=== PATIENT | male | born 1985 | race Caucasian/White ===

== ENCOUNTER 2017-07-31 19:45 | Emergency (ER) | payer SELFPAY ==
[2017-07-31 20:35] LABS: ADD MAN DIFF? NO
[2017-07-31 20:37] LABS: BASO # 0.1 x10^3/uL (0.0-0.2); BASO % 1 % (0-3); EOS # 0.3 x10^3/uL (0.0-0.7); EOS % 3 % (0-3); HEMATOCRIT 46.7 % (39.0-53.0); HEMOGLOBIN 15.8 g/dL (13.0-17.5); LYMPH # 3.2 x10^3/uL (1.0-4.8); LYMPH % 30 % (24-48); MEAN CORPUSCULAR HEMOGLOBIN 30 pg (25-35); MEAN CORPUSCULAR HGB CONC 34 g/dL (31-37); MEAN CORPUSCULAR VOLUME 89 fL (79-100); MONO # 0.6 x10^3/uL (0.0-1.1); MONO % 6 % (0-9); NEUT # 6.4 x10^3uL (1.8-7.7); NEUT % 60 % (31-73); PLATELET COUNT 338 x10^3/uL (140-400); RED BLOOD COUNT 5.26 x10^6/uL (4.30-5.70); WHITE BLOOD COUNT 10.5 x10^3/uL (4.0-11.0)
[2017-07-31 20:44] LABS: BILIRUBIN,URINE NEGATIVE (NEG); CLARITY,URINE CLEAR; COLOR,URINE YELLOW; GLUCOSE,URINE NEGATIVE (NEG); NITRITE,URINE NEGATIVE (NEG); PROTEIN,URINE NEGATIVE (NEG-TRACE); UROBILINOGEN,URINE 0.2 mg/dL (0.2 mg/dL)
[2017-07-31] MEDS ORDERED: CONTRAST GIVEN MC (20:45)
[2017-07-31 20:47] LABS: ANION GAP 11 (6-14); BLOOD UREA NITROGEN 14 mg/dL (8-26); BUN/CREATININE RATIO 14 (6-20); CARBON DIOXIDE 27 mmol/L (21-32); CHLORIDE 104 mmol/L (98-107); GFR 87.2; GLUCOSE 103 mg/dL (70-99); POTASSIUM 3.7 mmol/L (3.5-5.1); SODIUM 142 mmol/L (136-145)
[2017-07-31 20:53] LABS: ALK PHOS 95 U/L (46-116); ALT (SGPT) 37 U/L (16-63); AST (SGOT) 21 U/L (15-37); BACTERIA,URINE 0 /HPF (0-FEW); LIPASE 158 U/L (73-393); RBC,URINE 0 /HPF (0-2); SQUAMOUS EPITHELIAL CELL,UR OCC /LPF; TOTAL BILIRUBIN 0.4 mg/dL (0.2-1.0); WBC,URINE OCC /HPF (0-4)
[2017-07-31] MEDS: IV NORMAL SALINE 1000ML BAG 1,000 ML IV (21:07)
[2017-07-31] MEDS: KETOROLAC 30 MG/ML INJ. IV (21:08)
[2017-07-31] MEDS: IOHEXOL 300 MG/ML 100ML VIAL. IV (21:24)
== END 2017-07-31 23:31 | disposition home or self-care (01) ==
LOC: ER 19:45
DX: R10.12 Left upper quadrant pain (principal)
CPT/HCPCS: 36415; 74177; 80053; 81001; 83690; 85025; 96361; 96374; 99285-25; J1885; J7030; Q9967

== ENCOUNTER 2021-03-20 13:44 | Observation (INO) | payer OTHER ==
[~2021-03-20] VITALS: Ht 182.9 cm; Wt 156.5 kg
[~2021-03-20 13:44] MED LIST: CIPR500T94 PO; METR500T PO
[2021-03-20] MEDS ORDERED: IV NORMAL SALINE 1000ML BAG 1,000 ML IV ONE (14:15)
[2021-03-20] MEDS ORDERED: DEXAMETHASONE SOD PHOS 20 MG/5 ML VIAL. IV ONE (14:15)
[2021-03-20] MEDS ORDERED: IV NORMAL SALINE 1000ML BAG 1,000 ML IV SCH (14:15)
[2021-03-20] MEDS ORDERED: ACETAMINOPHEN 500 MG TABLET PO ONE (14:15)
[2021-03-20] MEDS ORDERED: ONDANSETRON PF 4 MG/2 ML VIAL. IVP ONE (14:15)
[2021-03-20] MEDS ORDERED: KETOROLAC 30 MG/ML VIAL. IVP ONE (14:15)
--- NOTE | 2021-03-20 14:40 | RAD ---
AP chest. HISTORY: Short of air, Covid symptoms AP view was taken of the chest. Patient's taken a poor inspiration which limits evaluation. There is no effusion. The heart is normal in size. Minimal infiltrates are possible. PA and lateral views with a better inspiration could be of benefit. IMPRESSION: 1. Poor inspiration. 2. Slight hazy atelectasis or possibly infiltrates. Electronically signed by: Melvin Box MD (03/20/2021 2:38 PM) [id number]
--- NOTE | 2021-03-20 14:58 | PHYS DOC ---
Past Medical History Past Medical History: No Pertinent History Past Surgical History: No Surgical History Smoking Status: Never Smoker Alcohol Use: None Drug Use: None General Adult EDM: Chief Complaint: FLU SYMPTOM HPI: HPI: Patient is a 35 year old male who presents with 7 days of cough, body aches, headache, shortness of breath, fever and yesterday started with nausea and vomiting. His children have also been sick. Nobody has been tested for Covid. He is not vaccinated. He denies any kind of medical history or surgeries. Rates his generalized pain at an 8 out of 10. Review of Systems: Review of Systems: Constitutional: +fever or chills. [] Eyes: Denies change in visual acuity. [] HENT: Denies nasal congestion or sore throat. [] Respiratory: + cough or +shortness of breath. [] Cardiovascular: Denies chest pain or edema. [] GI: Denies abdominal pain, +nausea, +vomiting, denies bloody stools or diarrhea. [] : Denies dysuria. [] Musculoskeletal: Denies back pain or joint pain. + Generalized body aches [] Integument: Denies rash. [] Neurologic: + headache, denies focal weakness or sensory changes. [] Endocrine: Denies polyuria or polydipsia. [] Lymphatic: Denies swollen glands. [] Psychiatric: Denies depression or anxiety. [] Heart Score: C/O Chest Pain: No Risk Factors: Risk Factors: DM, Current or recent (<one month) smoker, HTN, HLP, family history of CAD, obesity. Risk Scores: Score 0 - 3: 2.5% MACE over next 6 weeks - Discharge Home Score 4 - 6: 20.3% MACE over next 6 weeks - Admit for Clinical Observation Score 7 - 10: 72.7% MACE over next 6 weeks - Early Invasive Strategies Current Medications: Current Medications Medications (Trade) Dose Ordered Sig/Mani Start Time Stop Time Status Last Admin Dose Admin Acetaminophen (Tylenol) 1,000 mg 1X ONCE 03/20/21 14:15 03/20/21 14:36 DC Dexamethasone Sodium Phosphate (Decadron) 10 mg 1X ONCE 03/20/21 14:15 03/20/21 14:36 DC Ketorolac Tromethamine (Toradol 30mg Vial) 30 mg 1X ONCE 03/20/21 14:15 03/20/21 14:36 DC Ondansetron HCl (Zofran) 4 mg 1X ONCE 03/20/21 14:15 03/20/21 14:36 DC Sodium Chloride 1,000 ml @ 1,000 mls/hr 1X ONCE 03/20/21 14:15 03/20/21 15:14 Allergies: Allergies: Allergies Coded Allergies Type Severity Reaction Last Updated Verified No Known Drug Allergies 09/06/13 No Physical Exam: PE: Constitutional: Well developed, well nourished, no acute distress, non-toxic appearance. [] HENT: Normocephalic, atraumatic, bilateral external ears normal, oropharynx moist, no oral exudates, nose normal. [] Eyes: PERRLA, EOMI, conjunctiva normal, no discharge. [] Neck: Normal range of motion, no tenderness, supple, no stridor. [] Cardiovascular:Heart rate regular rhythm, no murmur [] Lungs & Thorax: Bilateral breath sounds clear to auscultation [] Abdomen: Bowel sounds normal, soft, no tenderness, no masses, no pulsatile masses. [] Skin: Warm, dry, no erythema, no rash. [] Back: No tenderness, no CVA tenderness. [] Extremities: No tenderness, no cyanosis, no clubbing, ROM intact, no edema. [] Neurologic: Alert and oriented X 3, normal motor function, normal sensory function, no focal deficits noted. [] Psychologic: Affect normal, judgement normal, mood normal. [] EKG: EK and read by Dr. Dill sinus tachycardia rhythm and no STEMI Radiology/Procedures: Radiology/Procedures: [][facility] [address] [place] [address] IMAGING REPORT Signed PATIENT: JOE VALLE ACCOUNT: [id number] : 1985 LOCATION: ER AGE: 35 SEX: M EXAM STATUS: REG ER ORD. PHYSICIAN: WYATT GONCALVES APRN REASON: covid sx, soa PROCEDURE: PORTABLE CHEST 1V AP chest. HISTORY: Short of air, Covid symptoms AP view was taken of the chest. Patient's taken a poor inspiration which limits evaluation. There is no effusion. The heart is normal in size. Minimal infiltrates are possible. PA and lateral views with a better inspiration could be of benefit. IMPRESSION: 1. Poor inspiration. 2. Slight hazy atelectasis or possibly infiltrates. Electronically signed by: Melvin Box MD (03/20/2021 2:38 PM) [id number] DICTATED and SIGNED BY: MELVIN BOX MD DATE: 03/20/21 [id number] Course & Med Decision Making: Course & Med Decision Making Pertinent Labs and Imaging studies reviewed. (See chart for details) COVID-19 CRITERIA: The patient was evaluated during the global COVID-19 pandemic, and that diagnosis was suspected/considered upon their initial presentation. Their evaluation, treatment and testing was consistent with current guidelines for patients who present with complaints or symptoms that may be related to COVID-19. See HPI. Alert and oriented x4. Ambulatory steady gait. Speaks in full clear. Lungs are clear in upper lobes and diminished in lower lobes. Skin pink warm and dry. Chest x-ray shows infiltrates. Patient is given 2 L of fluid and azithromycin, dexamethasone. Due to hypoxia patient is on it to the hospital. He is still tachycardic. He is admitted to the hospitalist. [] Malinda Disclaimer: Malinda Disclaimer: This electronic medical record was generated, in whole or in part, using a voice recognition dictation system. Departure Departure Impression: Primary Impression: Person under investigation for COVID-19 Additional Impressions: Pneumonia Qualified Codes: J18.9 - Pneumonia, unspecified organism Hypoxia Disposition: ADMITTED INPATIENT Admitting Physician: HIMHeeln Condition: STABLE Referrals: NO PCP (PCP) WYATT GONCALVES JOINT FILLER Mar 20, 2021 14:58
[2021-03-20 15:21] LABS: BASO % 1 % (0-3); EOS % 0 % (0-3); HEMATOCRIT 42.8 % (39.0-53.0); HEMOGLOBIN 14.9 g/dL (13.0-17.5); LYMPH # 0.9 x10^3/uL (1.0-4.8); LYMPH % 24 % (24-48); MEAN CORPUSCULAR HEMOGLOBIN 30 pg (25-35); MEAN CORPUSCULAR HGB CONC 35 g/dL (31-37); MEAN CORPUSCULAR VOLUME 87 fL (79-100); MONO # 0.3 x10^3/uL (0.0-1.1); MONO % 7 % (0-9); NEUT # 2.7 x10^3/uL (1.8-7.7); NEUT % 69 % (31-73); PLATELET COUNT 167 x10^3/uL (140-400); RED BLOOD COUNT 4.93 x10^6/uL (4.30-5.70); RED CELL DISTRIBUTION WIDTH 13.8 % (11.5-14.5)
[2021-03-20 15:34] LABS: BASE EXCESS COOX 1 mmol/L (-3-3); HCO3 COOX 24 mmol/L (21-28); METHEMOGLOBIN 0.4 % (0.0-1.9); OXYHEMOGLOBIN 91.3 %; PCO2 COOX 36 mmHg (35-46); PO2 COOX 60 mmHg (85-108); SAT O2 COOX 92 % (92-99)
[2021-03-20 15:42] LABS: CALCIUM 8.2 mg/dL (8.5-10.1); CREATININE 0.9 mg/dL (0.7-1.3); GFR 96.6; POTASSIUM 4.4 mmol/L (3.5-5.1)
[2021-03-20] MEDS ORDERED: AZITHRMYCN 500MG IVPB FOR OMNI 250 ML IV ONE (15:45)
[2021-03-20 15:46] LABS: ALBUMIN 3.3 g/dL (3.4-5.0); ALBUMIN/GLOBULIN RATIO 0.9 (1.0-1.7); TOTAL BILIRUBIN 0.4 mg/dL (0.2-1.0); TOTAL PROTEIN 7.1 g/dL (6.4-8.2)
[2021-03-20] MEDS ORDERED: DEXTROSE 50% 25 GM / 50ML DISP.SYRIN. IV PRN (17:00)
[2021-03-20] MEDS ORDERED: PROCHLORPERAZINE 10 MG/2 ML VIAL. IV PRN (17:00)
[2021-03-20] MEDS ORDERED: ACETAMINOPHEN 325 MG TABLET. PO PRN ×2 (17:00→17:15)
[2021-03-20] MEDS ORDERED: DOCUSATE SODIUM 100 MG CAPSULE. PO PRN (17:00)
[2021-03-20] MEDS ORDERED: cefTRIAXone IV Push 1 GM VIAL. IVP SCH (17:00)
[2021-03-20] MEDS ORDERED: SENNOSIDES 8.6 MG TABLET PO PRN (17:00)
[2021-03-20] MEDS ORDERED: ENOXAPARIN 40 MG/0.4 ML SYRINGE. SQ SCH (17:00)
[2021-03-20] MEDS ORDERED: ONDANSETRON PF 4 MG/2 ML VIAL. IVP PRN (17:00)
--- NOTE | 2021-03-20 17:05 | PDOC1 ---
History and Physical Date of Service: DOS: DATE: 03/20/21 TIME: 17:03 Chief Complaint: Chief Complain: Flulike symptoms History of Present Illness: HPI: 35 year old male who presents with 7 days of cough, body aches, headache, shortness of breath, fever and yesterday started with nausea and vomiting. His children have also been sick. Nobody has been tested for Covid. He is not vaccinated. He denies any kind of medical history or surgeries. Rates his generalized pain at an 8 out of 10. Past Medical/Surgical History: PMH/PSH: Denies any past medical or surgical history Allergies: Allergies: Coded Allergies: No Known Drug Allergies (Unverified , 09/06/13) Family History: Family History: Reviewed with no relevant findings. Multiple family members with flulike symptoms Social History: Social History: Denies any alcohol, drug or tobacco abuse Current Medications: Current Medications Current Medications Sodium Chloride 1,000 ml @ 1,000 mls/hr Q1H IV Last administered on 03/20/21at 16:04; Start 03/20/21 at 14:15; Stop 03/20/21 at 15:14; Status DC Ondansetron HCl (Zofran) 4 mg 1X ONCE IVP Last administered on 03/20/21at 16:03; Start 03/20/21 at 14:15; Stop 03/20/21 at 14:36; Status DC Ketorolac Tromethamine (Toradol 30mg Vial) 30 mg 1X ONCE IVP Last administered on 03/20/21at 16:03; Start 03/20/21 at 14:15; Stop 03/20/21 at 14:36; Status DC Sodium Chloride 1,000 ml @ 1,000 mls/hr 1X ONCE IV Last administered on 03/20/21at 16:04; Start 03/20/21 at 14:15; Stop 03/20/21 at 15:14; Status DC Dexamethasone Sodium Phosphate (Decadron) 10 mg 1X ONCE IV Last administered on 03/20/21at 16:04; Start 03/20/21 at 14:15; Stop 03/20/21 at 14:36; Status DC Acetaminophen (Tylenol) 1,000 mg 1X ONCE PO Last administered on 03/20/21at 16:04; Start 03/20/21 at 14:15; Stop 03/20/21 at 14:36; Status DC Azithromycin 250 ml @ 250 mls/hr 1X ONCE IV Last administered on 03/20/21at 16:05; Start 03/20/21 at 15:45; Stop 03/20/21 at 16:44; Status DC Acetaminophen (Tylenol) 650 mg PRN Q4HRS PRN PO FEVER > 100.3'F; Start 03/20/21 at 17:15; Stop 03/21/21 at 17:14; Status UNV Active Scripts Active Flagyl (Metronidazole) 500 Mg Tablet 1 Tab PO BID Cipro (Ciprofloxacin Hcl) 500 Mg Tablet 1 Tab PO BID ROS: Review of Systems Review of System REVIEW OF SYSTEMS: GENERAL: Positive fevers and chills. Positive for headache SKIN: No bruising, hair changes or rashes. EYES: No blurred, double or loss of vision. NOSE AND THROAT: No history of nosebleeds, hoarseness or sore throat. HEART: No history of palpitations, chest pain or shortness of breath on exertion. LUNGS: Positive shortness of breath GASTROINTESTINAL: Denies changes in appetite, nausea, vomiting, diarrhea or constipation. GENITOURINARY: No history of frequency, urgency, hesitancy or nocturia. NEUROLOGIC: Denies history of numbness, tingling, or tremor. PSYCHIATRIC: No history of panic, anxiety or depression. ENDOCRINE: No history of heat or cold intolerance, polyuria or polydipsia. EXTREMITIES: Denies joint pain, pain on walking or stiffness. Physical Exam: Physcial Exam: General: Well developed, well nourished, no acute distress, well appearing HEENT: Pupils equally round and reactive to light, EOMI, no discharge, normal conjunctiva Neck: Supple, no nuchal rigidity, no JVD, trachea midline, no tenderness Cardiac: RRR, no murmurs, no gallops, no rubs Chest/Lungs: Diminished bilaterally, no wheeze, no rhonchi, no crackles Abdomen: Obese, soft, non-distended, no guarding, no peritoneal signs, non- tender Back: No tenderness Extremities: no edema, pulses intact, non-tender,capillary refill <3 sec bilateral upper and lower extremities, Neuro: Alert and oriented x 4, no focal deficits, normal speech Labs: Labs: Laboratory Tests Test 03/20/21 15:14 03/20/21 15:29 White Blood Count 4.0 x10^3/uL (4.0-11.0) Red Blood Count 4.93 x10^6/uL (4.30-5.70) Hemoglobin 14.9 g/dL (13.0-17.5) Hematocrit 42.8 % (39.0-53.0) Mean Corpuscular Volume 87 fL (79-100) Mean Corpuscular Hemoglobin 30 pg (25-35) Mean Corpuscular Hemoglobin Concent 35 g/dL (31-37) Red Cell Distribution Width 13.8 % (11.5-14.5) Platelet Count 167 x10^3/uL (140-400) Neutrophils (%) (Auto) 69 % (31-73) Lymphocytes (%) (Auto) 24 % (24-48) Monocytes (%) (Auto) 7 % (0-9) Eosinophils (%) (Auto) 0 % (0-3) Basophils (%) (Auto) 1 % (0-3) Neutrophils # (Auto) 2.7 x10^3/uL (1.8-7.7) Lymphocytes # (Auto) 0.9 x10^3/uL (1.0-4.8) Monocytes # (Auto) 0.3 x10^3/uL (0.0-1.1) Eosinophils # (Auto) 0.0 x10^3/uL (0.0-0.7) Basophils # (Auto) 0.0 x10^3/uL (0.0-0.2) Sodium Level 136 mmol/L (136-145) Potassium Level 4.4 mmol/L (3.5-5.1) Chloride Level 102 mmol/L (98-107) Carbon Dioxide Level 25 mmol/L (21-32) Anion Gap 9 (6-14) Blood Urea Nitrogen 11 mg/dL (8-26) Creatinine 0.9 mg/dL (0.7-1.3) Estimated GFR (Cockcroft-Gault) 96.6 BUN/Creatinine Ratio 12 (6-20) Glucose Level 95 mg/dL (70-99) Calcium Level 8.2 mg/dL (8.5-10.1) Total Bilirubin 0.4 mg/dL (0.2-1.0) Aspartate Amino Transf (AST/SGOT) 99 U/L (15-37) Alanine Aminotransferase (ALT/SGPT) 180 U/L (16-63) Alkaline Phosphatase 80 U/L (46-116) Troponin I Quantitative < 0.017 ng/mL (0.000-0.055) Total Protein 7.1 g/dL (6.4-8.2) Albumin 3.3 g/dL (3.4-5.0) Albumin/Globulin Ratio 0.9 (1.0-1.7) O2 Saturation 92 % (92-99) Arterial Blood pH 7.45 (7.35-7.45) Arterial Blood pCO2 at Patient Temp 36 mmHg (35-46) Arterial Blood pO2 at Patient Temp 60 mmHg (85-108) Arterial Blood HCO3 24 mmol/L (21-28) Arterial Blood Base Excess 1 mmol/L (-3-3) Oxyhemoglobin 91.3 % Methemoglobin 0.4 % (0.0-1.9) Carbon Monoxide, Quantitative 0.1 % (0.0-1.9) FiO2 21 Laboratory Tests Test 03/20/21 15:14 03/20/21 15:29 White Blood Count 4.0 x10^3/uL (4.0-11.0) Red Blood Count 4.93 x10^6/uL (4.30-5.70) Hemoglobin 14.9 g/dL (13.0-17.5) Hematocrit 42.8 % (39.0-53.0) Mean Corpuscular Volume 87 fL (79-100) Mean Corpuscular Hemoglobin 30 pg (25-35) Mean Corpuscular Hemoglobin Concent 35 g/dL (31-37) Red Cell Distribution Width 13.8 % (11.5-14.5) Platelet Count 167 x10^3/uL (140-400) Neutrophils (%) (Auto) 69 % (31-73) Lymphocytes (%) (Auto) 24 % (24-48) Monocytes (%) (Auto) 7 % (0-9) Eosinophils (%) (Auto) 0 % (0-3) Basophils (%) (Auto) 1 % (0-3) Neutrophils # (Auto) 2.7 x10^3/uL (1.8-7.7) Lymphocytes # (Auto) 0.9 x10^3/uL (1.0-4.8) Monocytes # (Auto) 0.3 x10^3/uL (0.0-1.1) Eosinophils # (Auto) 0.0 x10^3/uL (0.0-0.7) Basophils # (Auto) 0.0 x10^3/uL (0.0-0.2) Sodium Level 136 mmol/L (136-145) Potassium Level 4.4 mmol/L (3.5-5.1) Chloride Level 102 mmol/L (98-107) Carbon Dioxide Level 25 mmol/L (21-32) Anion Gap 9 (6-14) Blood Urea Nitrogen 11 mg/dL (8-26) Creatinine 0.9 mg/dL (0.7-1.3) Estimated GFR (Cockcroft-Gault) 96.6 BUN/Creatinine Ratio 12 (6-20) Glucose Level 95 mg/dL (70-99) Calcium Level 8.2 mg/dL (8.5-10.1) Total Bilirubin 0.4 mg/dL (0.2-1.0) Aspartate Amino Transf (AST/SGOT) 99 U/L (15-37) Alanine Aminotransferase (ALT/SGPT) 180 U/L (16-63) Alkaline Phosphatase 80 U/L (46-116) Troponin I Quantitative < 0.017 ng/mL (0.000-0.055) Total Protein 7.1 g/dL (6.4-8.2) Albumin 3.3 g/dL (3.4-5.0) Albumin/Globulin Ratio 0.9 (1.0-1.7) O2 Saturation 92 % (92-99) Arterial Blood pH 7.45 (7.35-7.45) Arterial Blood pCO2 at Patient Temp 36 mmHg (35-46) Arterial Blood pO2 at Patient Temp 60 mmHg (85-108) Arterial Blood HCO3 24 mmol/L (21-28) Arterial Blood Base Excess 1 mmol/L (-3-3) Oxyhemoglobin 91.3 % Methemoglobin 0.4 % (0.0-1.9) Carbon Monoxide, Quantitative 0.1 % (0.0-1.9) FiO2 21 Images: Images PROCEDURE: PORTABLE CHEST 1V AP chest. HISTORY: Short of air, Covid symptoms AP view was taken of the chest. Patient's taken a poor inspiration which limits evaluation. There is no effusion. The heart is normal in size. Minimal infiltrates are possible. PA and lateral views with a better inspiration could be of benefit. IMPRESSION: 1. Poor inspiration. 2. Slight hazy atelectasis or possibly infiltrates. Assessment/Plan Assessment/Plan Acute hypoxic respiratory failure with ABG showing PO2 at 60 Morbid obesity Lymphopenia Transaminitis Moderate protein malnutrition Admit to medicine for further management Pulmonology consult Continue IV thiamine and vitamin C IV Solu-Medrol every 8 hours IV Remdesivir if patient requires O2 supplementation beyond there baseline Pending ferritin, LDH, CRP, D-dimer labs Titrate O2 supplementation to maintain O2 saturation greater than 92% Empiric IV antibiotics if patient has clinical presentation for bacterial pneumonia Lovenox for DVT prophylaxis Protonix GI prophylaxis ADA diet Full code Discussed with RN and SW Disposition inpt as above Surrogate decision maker is the Justifications for Admission Other Justification COVID-19 pneumonia VIRGINIA GARIBAY MD Mar 20, 2021 17:05
[2021-03-20 20:28] VITALS: BP 121/66
--- NOTE | 2021-03-20 21:18 | EKG ---
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
[2021-03-20] MEDS ORDERED: methylPREDNISolone SOD SUCC PF 40 MG/ML VIAL. IV SCH (22:00)
[2021-03-20] MEDS: PANTOPRAZOLE 40 MG TABLET.DR. PO SCH (23:00)
[2021-03-20] MEDS: ASCORBIC ACID 1,000 MG TABLET PO SCH (23:00)
[2021-03-20 23:49] LABS: BILIRUBIN,URINE NEGATIVE (NEG); CLARITY,URINE CLEAR; COLOR,URINE YELLOW; NITRITE,URINE NEGATIVE (NEG); PROTEIN,URINE NEGATIVE (NEG-TRACE)
[2021-03-20 23:54] LABS: BACTERIA,URINE 0 /HPF (0-FEW); RBC,URINE 0 /HPF (0-2); WBC,URINE 0 /HPF (0-4)
[2021-03-21 03:50] VITALS: BP 140/98
[2021-03-21] MEDS ORDERED: methylPREDNISolone SOD SUCC PF 125 MG/2 ML VIAL. IV SCH (06:00)
[2021-03-21 06:42] VITALS: BP 144/94
[2021-03-21 08:25] LABS: BASO % 1 % (0-3); EOS % 0 % (0-3); HEMATOCRIT 42.5 % (39.0-53.0); HEMOGLOBIN 14.7 g/dL (13.0-17.5); LYMPH # 0.6 x10^3/uL (1.0-4.8); LYMPH % 44 % (24-48); MEAN CORPUSCULAR HEMOGLOBIN 31 pg (25-35); MEAN CORPUSCULAR HGB CONC 35 g/dL (31-37); MEAN CORPUSCULAR VOLUME 88 fL (79-100); MONO # 0.1 x10^3/uL (0.0-1.1); MONO % 4 % (0-9); NEUT # 0.7 x10^3/uL (1.8-7.7); NEUT % 52 % (31-73); PLATELET COUNT 178 x10^3/uL (140-400); RED BLOOD COUNT 4.83 x10^6/uL (4.30-5.70); RED CELL DISTRIBUTION WIDTH 13.4 % (11.5-14.5)
[2021-03-21 08:28] LABS: CALCIUM 8.2 mg/dL (8.5-10.1); CREATININE 0.9 mg/dL (0.7-1.3); GFR 96.6; MAGNESIUM 1.9 mg/dL (1.8-2.4); PHOSPHORUS 2.9 mg/dL (2.6-4.7); POTASSIUM 4.2 mmol/L (3.5-5.1)
[2021-03-21 08:38] LABS: WHITE BLOOD COUNT 1.4 x10^3/uL (4.0-11.0)
[2021-03-21] MEDS ORDERED: THIAMINE 100 MG TABLET. PO SCH (09:00)
[2021-03-21] MEDS ORDERED: ENOXAPARIN 40 MG/0.4 ML SYRINGE. SQ SCH ×2 (09:00→12:00)
[2021-03-21] MEDS ORDERED: ZINC SULFATE 220 MG CAPSULE. PO SCH (09:00)
[2021-03-21] MEDS: PANTOPRAZOLE 40 MG TABLET.DR. PO SCH (09:17)
[2021-03-21] MEDS: ASCORBIC ACID 1,000 MG TABLET PO SCH (09:17)
[2021-03-21 11:00] VITALS: BP 151/99
--- NOTE | 2021-03-21 12:30 | PDOC ---
[employer] PROGRESS NOTE Date of Service DOS: DATE: 03/21/21 TIME: 12:20 Chief Complaint Chief Complaint CC: Flulike symptoms Morbid obesity Lymphopenia Transaminitis Moderate protein malnutrition History of Present Illness History of Present Illness HPI: 35 year old male who presents with 7 days of cough, body aches, headache, shortness of breath, fever and yesterday started with nausea and vomiting. His children have also been sick. Nobody has been tested for Covid. He is not vaccinated. He denies any kind of medical history or surgeries. Rates his generalized pain at an 8 out of 10. 03/21: Patient seen and examined. He says he feels better than yesterday and is ready to go home. Discussed discharge plans with patient and what medications he will be taking at home. Discussed with RN. Chart reviewed. Vitals/I&O Vitals/I&O: Vital Signs Date Time Temp Pulse Resp B/P (MAP) Pulse Ox O2 Delivery O2 Flow Rate FiO2 03/21/21 11:00 98.6 99 18 151/99 (116) 93 Room Air 98.6 I & O 03/20/21 03/20/21 03/21/21 15:00 23:00 07:00 Intake Total 240 ml Output Total 400 ml Balance -400 ml 240 ml Physical Exam General: Alert, Oriented X3, Cooperative, No acute distress Heart: Regular rate, Normal S1, Normal S2 Lungs: Clear Labs Labs: Laboratory Tests Test 03/20/21 14:59 03/20/21 15:14 03/20/21 15:29 03/20/21 20:50 SARS-CoV-2 RNA (ROBERTO) Positive (Negative) White Blood Count 4.0 x10^3/uL (4.0-11.0) Red Blood Count 4.93 x10^6/uL (4.30-5.70) Hemoglobin 14.9 g/dL (13.0-17.5) Hematocrit 42.8 % (39.0-53.0) Mean Corpuscular Volume 87 fL (79-100) Mean Corpuscular Hemoglobin 30 pg (25-35) Mean Corpuscular Hemoglobin Concent 35 g/dL (31-37) Red Cell Distribution Width 13.8 % (11.5-14.5) Platelet Count 167 x10^3/uL (140-400) Neutrophils (%) (Auto) 69 % (31-73) Lymphocytes (%) (Auto) 24 % (24-48) Monocytes (%) (Auto) 7 % (0-9) Eosinophils (%) (Auto) 0 % (0-3) Basophils (%) (Auto) 1 % (0-3) Neutrophils # (Auto) 2.7 x10^3/uL (1.8-7.7) Lymphocytes # (Auto) 0.9 x10^3/uL (1.0-4.8) Monocytes # (Auto) 0.3 x10^3/uL (0.0-1.1) Eosinophils # (Auto) 0.0 x10^3/uL (0.0-0.7) Basophils # (Auto) 0.0 x10^3/uL (0.0-0.2) Sodium Level 136 mmol/L (136-145) Potassium Level 4.4 mmol/L (3.5-5.1) Chloride Level 102 mmol/L (98-107) Carbon Dioxide Level 25 mmol/L (21-32) Anion Gap 9 (6-14) Blood Urea Nitrogen 11 mg/dL (8-26) Creatinine 0.9 mg/dL (0.7-1.3) Estimated GFR (Cockcroft-Gault) 96.6 BUN/Creatinine Ratio 12 (6-20) Glucose Level 95 mg/dL (70-99) Calcium Level 8.2 mg/dL (8.5-10.1) Total Bilirubin 0.4 mg/dL (0.2-1.0) Aspartate Amino Transf (AST/SGOT) 99 U/L (15-37) Alanine Aminotransferase (ALT/SGPT) 180 U/L (16-63) Alkaline Phosphatase 80 U/L (46-116) Troponin I Quantitative < 0.017 ng/mL (0.000-0.055) Total Protein 7.1 g/dL (6.4-8.2) Albumin 3.3 g/dL (3.4-5.0) Albumin/Globulin Ratio 0.9 (1.0-1.7) Procalcitonin < 0.10 ng/mL (0.00-0.10) O2 Saturation 92 % (92-99) Arterial Blood pH 7.45 (7.35-7.45) Arterial Blood pCO2 at Patient Temp 36 mmHg (35-46) Arterial Blood pO2 at Patient Temp 60 mmHg (85-108) Arterial Blood HCO3 24 mmol/L (21-28) Arterial Blood Base Excess 1 mmol/L (-3-3) Oxyhemoglobin 91.3 % Methemoglobin 0.4 % (0.0-1.9) Carbon Monoxide, Quantitative 0.1 % (0.0-1.9) FiO2 21 D-Dimer (Delilah) 0.54 ug/mlFEU (0.00-0.50) Test 03/20/21 23:30 03/21/21 07:45 Urine Collection Type Unknown Urine Color Yellow Urine Clarity Clear Urine pH 6.0 (<5.0-8.0) Urine Specific [place] 1.020 (1.000-1.030) Urine Protein Negative mg/dL (NEG-TRACE) Urine Glucose (UA) Negative mg/dL (NEG) Urine Ketones (Stick) 15 mg/dL (NEG) Urine Blood Negative (NEG) Urine Nitrite Negative (NEG) Urine Bilirubin Negative (NEG) Urine Urobilinogen Dipstick 1.0 mg/dL (0.2 mg/dL) Urine Leukocyte Esterase Negative (NEG) Urine RBC 0 /HPF (0-2) Urine WBC 0 /HPF (0-4) Urine Squamous Epithelial Cells Few /LPF Urine Bacteria 0 /HPF (0-FEW) Urine Mucus Slight /LPF White Blood Count 1.4 x10^3/uL (4.0-11.0) Red Blood Count 4.83 x10^6/uL (4.30-5.70) Hemoglobin 14.7 g/dL (13.0-17.5) Hematocrit 42.5 % (39.0-53.0) Mean Corpuscular Volume 88 fL (79-100) Mean Corpuscular Hemoglobin 31 pg (25-35) Mean Corpuscular Hemoglobin Concent 35 g/dL (31-37) Red Cell Distribution Width 13.4 % (11.5-14.5) Platelet Count 178 x10^3/uL (140-400) Neutrophils (%) (Auto) 52 % (31-73) Lymphocytes (%) (Auto) 44 % (24-48) Monocytes (%) (Auto) 4 % (0-9) Eosinophils (%) (Auto) 0 % (0-3) Basophils (%) (Auto) 1 % (0-3) Neutrophils # (Auto) 0.7 x10^3/uL (1.8-7.7) Lymphocytes # (Auto) 0.6 x10^3/uL (1.0-4.8) Monocytes # (Auto) 0.1 x10^3/uL (0.0-1.1) Eosinophils # (Auto) 0.0 x10^3/uL (0.0-0.7) Basophils # (Auto) 0.0 x10^3/uL (0.0-0.2) Sodium Level 139 mmol/L (136-145) Potassium Level 4.2 mmol/L (3.5-5.1) Chloride Level 103 mmol/L (98-107) Carbon Dioxide Level 24 mmol/L (21-32) Anion Gap 12 (6-14) Blood Urea Nitrogen 11 mg/dL (8-26) Creatinine 0.9 mg/dL (0.7-1.3) Estimated GFR (Cockcroft-Gault) 96.6 Glucose Level 174 mg/dL (70-99) Calcium Level 8.2 mg/dL (8.5-10.1) Phosphorus Level 2.9 mg/dL (2.6-4.7) Magnesium Level 1.9 mg/dL (1.8-2.4) Review of Systems Review of Systems: no changes in vision. no rashes. Assessment and Plan Assessmemt and Plan Problems Medical Problems: (1) Hypoxia Status: Acute (2) Person under investigation for COVID-19 Status: Acute (3) Pneumonia Status: Acute Flulike symptoms Morbid obesity Lymphopenia Transaminitis Moderate protein malnutrition Plan: Plan discharge for today Start medrol dose dipesh once discharged Start Z-dipesh once discharged Comment Review of Relevant I have reviewed the following items eliz (where applicable) has been applied. Medications: Current Medications Medications (Trade) Dose Ordered Sig/Mani Route PRN Reason Start Time Stop Time Status Last Admin Dose Admin Sodium Chloride 1,000 ml @ 1,000 mls/hr Q1H IV 03/20/21 14:15 03/20/21 15:14 DC 03/20/21 16:04 Ondansetron HCl (Zofran) 4 mg 1X ONCE IVP 03/20/21 14:15 03/20/21 14:36 DC 03/20/21 16:03 Ketorolac Tromethamine (Toradol 30mg Vial) 30 mg 1X ONCE IVP 03/20/21 14:15 03/20/21 14:36 DC 03/20/21 16:03 Sodium Chloride 1,000 ml @ 1,000 mls/hr 1X ONCE IV 03/20/21 14:15 03/20/21 15:14 DC 03/20/21 16:04 Dexamethasone Sodium Phosphate (Decadron) 10 mg 1X ONCE IV 03/20/21 14:15 03/20/21 14:36 DC 03/20/21 16:04 Acetaminophen (Tylenol) 1,000 mg 1X ONCE PO 03/20/21 14:15 03/20/21 14:36 DC 03/20/21 16:04 Azithromycin 250 ml @ 250 mls/hr 1X ONCE IV 03/20/21 15:45 03/20/21 16:44 DC 03/20/21 16:05 Enoxaparin Sodium (Lovenox 40mg Syringe) 40 mg Q12H SQ 03/20/21 17:00 03/21/21 00:22 DC 03/20/21 22:59 Ceftriaxone Sodium (Rocephin) 1 gm Q24H IVP 03/20/21 17:00 03/20/21 22:58 Ascorbic Acid (Vitamin C) 3,000 mg TID PO 03/20/21 21:00 03/21/21 09:17 Methylprednisolone Sodium Succinate (SOLU-Medrol 40MG VIAL) 125 mg Q8HRS IV 03/20/21 22:00 03/21/21 05:25 DC 03/20/21 23:00 Thiamine Mononitrate (Vitamin B-1) 300 mg DAILY PO 03/21/21 09:00 03/21/21 09:17 Zinc Sulfate (Orazinc) 220 mg DAILY PO 03/21/21 09:00 03/21/21 09:17 Pantoprazole Sodium (Protonix) 40 mg DAILYAC PO 03/20/21 18:45 03/21/21 09:17 Enoxaparin Sodium (Lovenox 40mg Syringe) 40 mg Q12H SQ 03/21/21 09:00 03/21/21 09:17 Methylprednisolone Sodium Succinate (SOLU-Medrol 125MG VIAL) 125 mg Q8HRS IV 03/21/21 06:00 03/21/21 06:23 Justifications for Admission Other Justification COVID-19 pneumonia LIZZY SELF III DO Mar 21, 2021 12:30
[2021-03-21 13:13] LABS: % ATYL 3 % (0-0); % BANDS 9 % (0-9); % LYMPHS 37 % (24-48); % MONOS 6 % (0-10)
[2021-03-21 13:14] LABS: % SEGS 45 % (35-66)
--- NOTE | 2021-03-21 13:14 | NUR ---
Pt left unit at 1310 by ambulation via private vehicle. Pt's IV removed without complication, VSS. Discharge paperwork discussed, including medications and follow-up. COVID handout provided.
[2021-03-21 13:15] LABS: PLT ESTIMATE ADEQUATE (ADEQUATE)
[2021-03-21] MEDS ORDERED: AZITHROMYCIN 500 MG in IV NORMAL SALINE 250ML 250 ML IV SCH (17:00)
--- NOTE | 2021-03-21 18:40 | DS ---
DATE OF DISCHARGE: 03/21/2021 ADMITTING DIAGNOSIS: COVID-19 pneumonia. DISCHARGE DIAGNOSES: 1. Resolving COVID-19 pneumonia. 2. Overweight. 3. Leukopenia (secondary to viral syndrome). CONSULTS: None. PROCEDURES: None. HOSPITAL COURSE: The patient is a pleasant 35-year-old male who presented with COVID-19 pneumonia. He states he had symptoms for 8 days. He finally came in for treatment. We admitted him for COVID protocol. This morning, I saw and examined him. He is at his baseline and wants to go home. He is up in the chair. He is breathing well and not requiring oxygen. We plan to discharge on a Medrol Dosepak and a Z-JANNIE. DISPOSITION: Home. ACTIVITY: As tolerated. DIET: Low sodium. MEDICATIONS: Please see the MRAD. Z-JANNIE #1 as directed, Medrol Dosepak #1 as directed. TOTAL TIME: 32 minutes. ЕКАТЕРИНА/SITA/BLANCA DR: Radha TID: [id number]
== END 2021-03-21 13:17 | disposition home or self-care (01) ==
LOC: ER 13:44 → 5 SOUTH 16:53
PROVIDERS: ADMIT Internal Medicine; ATTEND Internal Medicine
DX: U07.1 COVID-19 (principal); J12.82 Pneumonia due to coronavirus disease 2019; J96.01 Acute respiratory failure with hypoxia; E44.0 Moderate protein-calorie malnutrition; E66.01 Morbid (severe) obesity due to excess calories; D72.810 Lymphocytopenia
CPT/HCPCS: 36415; 36600; 71045; 80048; 80053; 81001; 82805; 83735; 84100; 84145; 84484; 85007; 85025; 85379; 93005; 96365; 96372; 96375; 96376; 99285; G0378; J0456; J0696; J1100; J1650; J1885; J2405; J2920; J2930; J7030; U0003; U0005; G0379